=== PATIENT | male | born 1995 | race Hispanic/Latino ===

== ENCOUNTER 2024-12-14 12:35 | Emergency (ER) | payer SELFPAY ==
[2024-12-14 12:53] VITALS: BP 124/74; PULSE 98; RESP 18; TEMP 36.9; O2SAT 100
--- NOTE | 2024-12-14 13:24 | ED.URI ---
HPI - URI/Sore Throat General Chief Complaint: Skin/Abscess/Foreign Body Stated Complaint: URI Time Seen by Provider: 12/14/24 12:57 Source: patient and RN notes reviewed Mode of arrival: ambulatory Limitations: no limitations History of Present Illness HPI Narrative: Patient presents today with a 2 day history of sore throat, subjective fever, cough, rhinorrhea, headache. He has tried Tylenol once without improvement. He is also concerned regarding recurrent hives over the last 2 months. He was initially seen a few months ago and ER in [place], [place] and given a course of steroids. States they did not help in the hives have wax and waned since that time. Denies shortness of breath Related Data Allergies Allergy/AdvReac Type Severity Reaction Status Date / Time No Known Allergies Allergy Verified 12/14/24 13:04 [facility] Comments At time of signature, I have reviewed and agree with nursing past medical, surgical, social and family history unless otherwise noted. Please see nursing chart for further information. There is no relevant family history pertinent to the presenting complaint Exam Narrative: GENERAL: Mildy ill-appearing, well-nourished, and in no acute distress. HEAD: Normocephalic, atraumatic. EYES: EOMI. No redness or drainage. Conjunctivae normal. ENT: Mucous membranes pink and moist. Nares clear. No rhinorrhea. TMs normal bilaterally. Throat normal. Uvula midline. NECK: Normal AROM. Supple. No lymphadenopathy. CHEST: No respiratory distress. Clear to auscultation. HEART: Regular rate and rhythm. No murmur appreciated. EXTREMITIES: Normal range of motion. No edema. SKIN: Warm, dry. Capillary refill normal. Normal skin turgor. Cluster of linear urticarial lesions to the left inner upper arm. NEURO: No focal deficits. Alert and oriented x3. Gait steady. PSYCH: Normal affect. No signs of depression or anxiety. Course Course Level of Care: Express Care Visit Vital Signs Vital signs: Vital Signs Temperature 98.4 F 12/14/24 12:53 Pulse Rate 98 12/14/24 12:53 Respiratory Rate 18 12/14/24 12:53 Blood Pressure 124/74 12/14/24 12:53 Pulse Oximetry 100 12/14/24 12:53 Oxygen Delivery Room Air 12/14/24 12:53 Temperature 98.4 F 12/14/24 12:53 Pulse Rate 98 12/14/24 12:53 Respiratory Rate 18 12/14/24 12:53 Blood Pressure 124/74 12/14/24 12:53 Pulse Oximetry 100 12/14/24 12:53 Oxygen Delivery Room Air 12/14/24 12:53 Reviewed MDM - URI/Sore Throat MDM Narrative Medical decision making narrative: Patient presents today with a 2 day history of sore throat, subjective fever, cough, rhinorrhea, headache. He has tried Tylenol once without improvement. He is also concerned regarding recurrent hives over the last 2 months. He was initially seen a few months ago and ER in [place], [place] and given a course of steroids. States they did not help in the hives have waxed and waned since that time. On exam, patient has some linear urticarial lesions to the right upper arm. Patient is mildly ill appearing exam is otherwise negative. Influenza, COVID-19, and rapid strep negative. Symptoms likely viral in etiology. Discussed [id number] medication use and duration of illness. Patient will be treated for his hives with some prednisone and hydroxyzine. He is requesting contact information for PCPs in the area so he can initiate care. Anticipatory guidance given. Differential Diagnosis Differential diagnosis: Likely upper respiratory infection, viral infection, influenza, pharyngitis and other (Strep throat, COVID-19, urticaria, contact dermatitis, tinea) Lab Data Attestation: I reviewed the patient's lab results. Labs: Lab Results 12/14/24 12/14/24 Range/Units 13:30 13:42 POC Influenza A Ag Negative (Negative) POC Influenza B Ag Negative (Negative) POC SARS CoV-2 Ag Negative (Negative) POC Grp A Strep Screen Negative (Negative) Critical Care Time Critical Care Time Critical Care Time: No Discharge Plan Discharge Clinical Impression: Urticaria Upper respiratory infection Qualifiers: URI type: unspecified URI Qualified Code(s): J06.9 - Acute upper respiratory infection, unspecified Patient Disposition: Home Condition: Stable Instructions: Urticaria (ED) Additional Instructions: Your COVID-19, influenza, and rapid strep swab was negative today at [facility]. Your symptoms are likely due to a viral illness, which is not treated with antibiotics. Viral symptoms can be present for up to 7-10 days. Take Tylenol or ibuprofen for fever or pain. Take the prednisone and hydroxyzine for your hive symptoms. Do not drive within 6 hours of taking the hydroxyzine as it can make you drowsy. Rest and stay hydrated. Follow up with your PCP in 7 days if symptoms are not improving. Go to the ER immediately if you have any difficulty breathing or swallowing. If you need help finding a PCP, you may call the physician liaison phone number at [facility] at [phone]. Patient Language: Austrian Prescriptions: New prednisone 20 mg tablet 40 mg PO DAILY 5 Days Qty: 10 0RF hydroxyzine HCl 50 mg tablet 50 mg PO TID PRN (Reason: itching) Qty: 20 0RF Follow-up/Referrals: UNKNOWN,DOCTOR [Primary Care Provider] Time of Disposition: 13:56
[2024-12-14 13:32] LABS: EDSTREPNEGPOS1 Negative (Negative)
[2024-12-14 13:43] LABS: EDCOVIDSCREEN Negative (Negative); EDINFLUASCREEN Negative (Negative); EDINFLUBSCREEN Negative (Negative)
== END 2024-12-14 14:02 | disposition home or self-care (01) ==
PROVIDERS: Emergency Provider Nurse Practitioner
DX: L50.9 Urticaria, unspecified (principal); J06.9 Acute upper respiratory infection, unspecified; Z20.822 Contact with and (suspected) exposure to COVID-19
CPT/HCPCS: 87426; 87804; 87880; 99203; G0463